=== PATIENT | male | born 1960 | race Caucasian/White ===

== ENCOUNTER 2024-06-09 09:30 | Outpatient (RCR) | payer MEDICARE, SELFPAY ==
[2024-05-08 14:45] LABS: Hematocrit 33.1 % (37.0-53.0); Hemoglobin* 11.0 gm/dL (13.5-17.5); Immature Granulocytes Abs Auto 0.03 K/uL (0.00-0.30); Immature Granulocytes Pct Auto 0.7 %; Mean Corpuscular HGB Conc 33 gm/dL (32-36); Mean Corpuscular Hemoglobin 30 pg (26-34); Mean Corpuscular Volume 89 fL (80-100); RDW Coefficient of Variation % 16.1 % (11.5-15.5); Red Blood Count 3.73 m/uL (4.30-5.90); White Blood Count* 4.55 K/uL (4.50-11.00)
[2024-05-08 14:49] LABS: Lymphocytes Absolute Auto 2.10 K/uL (0.90-2.90); Slide Review Reflex No
[2024-05-08 14:52] LABS: Albumin* 3.9 g/dL (3.3-5.0); Chloride* 103 mmol/L (96-114); Potassium* 3.2 mmol/L (3.6-5.1); Sodium* 134 mmol/L (135-149)
[2024-05-08 14:54] LABS: Anion Gap 4 mEq/L (7-15); Blood Urea Nitrogen* 9 mg/dL (7-30); Carbon Dioxide* 27 mmol/L (20-32); Creatinine* 0.7 mg/dL (0.5-1.5); Est. Creatinine Clearance* 68.85; Estimated Glomerular Filt Rate 102 ml/min
[2024-05-08 14:55] LABS: Alanine Aminotransferase* 48 U/L (4-50); Alkaline Phosphatase* 69 U/L (40-150); Aspartate Amino Transferase* 54 U/L (12-35); Bilirubin Total* 0.3 mg/dL (0.1-1.5); Calcium* 9.0 mg/dL (8.4-10.6); Glucose* 91 mg/dL (60-115); Total Protein* 6.4 g/dL (6.0-8.3)
--- NOTE | 2024-05-13 09:46 | ONC.NURNOTE ---
Addendum entered by Breanne Drew RN 05/15/24 13:00: Called pt to check in on status of Capecitabine. No answer, LM for pt to call back. RN then called [facility] and was told that pt's drug shipped and he should have received it yesterday. Original Note: Called pt today to check in on status of Capecitabine. Pt states that he hasn't heard anything from [facility]. RN called the pharmacy and asked that the process be expedited. Pt is due to start radiation and Capecitabine on 05/19/2024.
--- NOTE | 2024-05-15 13:41 | ONC.NURNOTE ---
Late entry: 05/13/24 [employer] clarified with Arlin Winn that the Potassium chloride is a 7 day supply, not 14. Arlin Winn PAElliotC confirmed this. [facility] pharmacy updated.
--- NOTE | 2024-05-21 11:24 | ONC.NURNOTE ---
Called pt today to check in after starting radiation and Capecitabine on Sunday. LM on primary VM and invited a call back with updates.
--- NOTE | 2024-05-22 09:16 | ONC.NURNOTE ---
Called pt today to check in as he started Capecitabine on Sunday. LM on pt's primary voicemail inviting a call back if she wishes. Of note, RN scheduled pt for MD visit on 05/30 and labs on 06/02 both of which were communicated in the message. RN also communicated these appointments to the [facility] team so they can give him the appt info tomorrow when present for radiation treatment.
--- NOTE | 2024-05-27 14:23 | ONC.NURNOTE ---
Spoke with Olayinka's SO, Deedee, today to discuss pt's upcoming appointments. Deedee states that Olayinka is doing really well with radiation and the Capecitabine so far. He does radiation early mornings so the MD visit scheduled for 05/30 at 1:00 PM doesn't work for him as they don't live super close. RN moved Olayinka's follow up visit to 5/5 am which is 3 weeks after starting Capecitabine. He will come in after radiation on 06/02 for labs. Deedee appreciates that. RN will schedule next visit now to get an AM appt time. SHANDA Bai updated.
[2024-06-02] MEDS: SODIUM CHLORIDE 0.9 % (FLUSH) 10 ML SYRINGE IVF (08:53)
[2024-06-02] MEDS: HEPARIN 500 UNIT/5 ML SYRINGE IVF (08:54)
[2024-06-02 09:00] LABS: Hematocrit 33.5 % (37.0-53.0); Hemoglobin* 11.1 gm/dL (13.5-17.5); Immature Granulocytes Abs Auto 0.02 K/uL (0.00-0.30); Immature Granulocytes Pct Auto 0.4 %; Lymphocytes Absolute Auto 1.18 K/uL (0.90-2.90); Mean Corpuscular HGB Conc 33 gm/dL (32-36); Mean Corpuscular Hemoglobin 31 pg (26-34); Mean Corpuscular Volume 92 fL (80-100); RDW Coefficient of Variation % 16.7 % (11.5-15.5); Red Blood Count 3.63 m/uL (4.30-5.90); White Blood Count* 5.03 K/uL (4.50-11.00)
[2024-06-02 09:02] LABS: Slide Review Reflex No
[2024-06-02 09:13] LABS: Albumin* 4.0 g/dL (3.3-5.0); Chloride* 106 mmol/L (96-114)
[2024-06-02 09:14] LABS: Potassium* 3.7 mmol/L (3.6-5.1); Sodium* 139 mmol/L (135-149)
[2024-06-02 09:16] LABS: Alanine Aminotransferase* 27 U/L (4-50); Anion Gap 8 mEq/L (7-15); Aspartate Amino Transferase* 40 U/L (12-35); Bilirubin Total* 0.2 mg/dL (0.1-1.5); Blood Urea Nitrogen* 14 mg/dL (7-30); Carbon Dioxide* 25 mmol/L (20-32); Creatinine* 0.8 mg/dL (0.5-1.5); Est. Creatinine Clearance* 68.85; Estimated Glomerular Filt Rate 98 ml/min
[2024-06-02 09:17] LABS: Alkaline Phosphatase* 61 U/L (40-150); Calcium* 9.0 mg/dL (8.4-10.6); Glucose* 94 mg/dL (60-115); Total Protein* 6.6 g/dL (6.0-8.3)
--- NOTE | 2024-06-03 13:37 | ONC.NURNOTE ---
loose stool follow up: patient took 1/2 imodium as instructed yesterday at 10:20 am after returning from XRT re took one additional dose in the afternoon 1 mg he tracked the # of bathroom visits- 12 during the day and 4 at night- he has frequent urges to move bowels- it ranges from small mucus to watery stools he is working on drinking more water and taking his potassium tabs recommended that he increase his imodium to TID using 1/2 imodium per dose (as was Dr Rodriguez recommendation) Will reassess tomorrow- next step is to increase the am dose to 1 imodium followed by 1/2 imodium in afternoon and evening Has a rad onc appt on - Mojgan MUNIZ will communicate to team to assess his bowel status at that time as well
--- NOTE | 2024-06-04 12:24 | ONC.NURNOTE ---
Follow up on loose stools: took 1 full imodium this am- and taking 1/2 imodium in afternoon and evening reports much improvement overnight he had 2 stools instead of 6 the previous nights so far today he has had 3 stools- loose or mucusy patient is comfortable with this improvement reports that he saw Dr Arguello today who ordered a RX and sent to pharmacy of another antidiarrheal, but patient states the situation is much improved- he will talk to XRT staff tomorrow about whether he should start something else- he is unsure of the name of the medication
--- NOTE | 2024-06-16 12:14 | ONC.NURNOTE ---
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
== END 2024-11-03 23:59 | disposition home or self-care (01) ==
LOC: CCIC 09:30
PROVIDERS: Physician Assistant; Visit Provider Internal Medicine Hematology & Oncology
DX: C20 Malignant neoplasm of rectum (principal); Z86.711 Personal history of pulmonary embolism; Z86.718 Personal history of other venous thrombosis and embolism
CPT/HCPCS: 36415; 36591; 80053; 83735; 85025; 99202; 99204; 99211; 99215; G0463; J1642